=== PATIENT | male | born 1985 | race Caucasian/White ===

== ENCOUNTER 2023-12-18 15:40 | Emergency (ER) | payer OTHER, SELFPAY ==
[2023-12-18 15:41] VITALS: BP 145/108; PULSE 78; RESP 16; TEMP 37; O2SAT 100; BMI 30.8
--- NOTE | 2023-12-18 16:51 | EX.ED.UPPERE ---
HPI History of Present Illness HPI Narrative: 38-year-old male, [id number], injury to his right thumb over a week ago on a Monday when he accidentally shut it in a car door. [facility] Had negative x-rays. He did trephination to remove a subungual hematoma. The subungual hematoma has recurred. He also has a blood blister proximal to the nail. Denies any other injuries. No prior surgery to his right thumb. He is on no blood thinners. Chief Complaint: Upper Extremity Injury Informant: patient Occured/Mechanism Mechanism/Context: Yes injury and Yes blunt trauma Onset/Context/Timing Onset: Days Context: Sudden Onset Timing: Continuous Quality of Pain: Dull and Aching Current Severity: Mild Maximum Severity: Mild Associated Symptoms Associated Symptoms: Negative for Parasthesia, Weakness or Loss of Funtion Narrative Prior similar symptoms: No Recent Illness/Hospitalization: No PFSH PFSH Allergy/AdvReac Type Severity Reaction Status Date / Time No Known Allergies Allergy Verified 12/18/23 15:41 Surgical History (Updated 12/18/23 @ 17:02 by Chiquis Vang) [place] teeth removed Hx of LASIK Status post labral repair of shoulder History of appendectomy Social History Smoking Status: Never smoker ROS ROS ED ROS Narrative Denies recent illness. Review of Systems ROS Unobtainable: Denies due to encephalopathy Constitutional Constitutional ED: Denies chills or fever(s) Eyes Eyes: Denies blurry vision ENT ENT ED: Denies ear pain Cardiovascular Cardiovascular: Denies chest pain Respiratory/Chest Respiratory/Chest: Denies cough Gastrointestinal Gastrointestinal: Denies abdominal pain Genitourinary Genitourinary ED: Denies dysuria or hematuria Musculoskeletal Musculoskeletal: Denies back pain Integumentary Denies abscess Neurologic Neurologic: Denies headache(s) Endocrine Endocrinology: Denies cold intolerance Hematologic/Lymphatic Hematologic/Lymphatic: Denies easy bleeding Allergic/Immunologic Allergic/Immunologic ED: Denies mouth swelling EXAM Physical Exam Narrative Exam Narrative: 38-year-old male no acute distress. Vital signs stable afebrile. HEENT exam unremarkable. Lungs clear. Heart regular rhythm. Abdomen soft. He is moving all 4 extremities. Neurovascular intact. His right thumb is 100% subungual hematoma. It is black and blue. Proximal to the nail he has inch long by half inch wide blood blister. He has normal flexion extension all digits of that hand. Const Vital Signs: 12/18/23 15:41 Temperature 98.6 F Temperature Source Temporal Pulse Rate 78 Respiratory Rate 16 Blood Pressure 145/108 H Blood Pressure Mean 120 Pulse Ox 100 Positive well nourished and well developed; Negative for obese, cachectic or contractures General Appearance ED: well developed and NAD; Negative for cachectic, contractures, cyanotic or diaphoretic Nutritional Appearance: Negative for cachectic or obese HEENT Reports moist mucous membranes normocephalic and atraumatic; Negative for trauma or tenderness Eyes PERRL and EOMs intact bilaterally General Eye ED: Negative for other Neck full ROM and supple General: Negative for tenderness Lymph Lymphatic: Negative for other Chest Wall inspection of chest normal and palpation of chest normal Chest: Negative for other Resp normal respiratory effort and clear to auscultation bilaterally Effort and Inspection: Negative for pain with movement Auscultation: Negative for rales, rhonchi or wheezes Cardio regular rate, regular rhythm, S1 normal heart sound, S2 normal heart sound and no murmurs Rate: Negative for bradycardia or tachycardic Rhythm: Negative for abnormal rhythm GI non-tender, non-distended and no masses Inspection: Negative for abdominal distention Auscultation: normoactive bowel sounds Palpation: soft; Negative for tender, guarding or rebound tenderness present Bladder / Kidney Exam: No other Back/Spine no CVA tenderness General Back: Negative for CVA tenderness Cervical Spine: Negative for cervical spine tenderness Thoracic Spine / Upper Back: Negative for thoracic spinal tenderness Lumbar Spine / Lower Back: Negative for lumbar spinal tenderness Extremity full ROM; Negative for normal to inspection Extremity Narrative: Right thumb 100% subungual hematoma. Proximal nail a blood blister. General Extremety ED: Negative for edema General Extremity: Negative for edema Neuro oriented x3, CN's II-XII intact bilaterally, moves all extremities and no focal motor deficits Sensorium / Orientation: alert, oriented to person, oriented to place and oriented to time; Negative for orientation impaired or lethargic Motor Exam: strength 5/5 throughout Psych mental status grossly normal Attitude: No agitated Mood & Affect: Negative for anxious or tearful Skin General Skin Exam: Negative for petechiae Rashes: no rashes Trauma: no lacerations or abrasions MDM MDM MDM Narrative Medical decision making narrative: Right thumb 100% subungual hematomas of blood blister. Patient I discussed treatments he wanted to be drained. He understands and may not drain much since been there over a week. Will do a digital block of his right thumb all incised and drained a blood blister. And will trephinate the right thumbnail to try to remove the subungual hematoma. History & Record Review Discussion w/independent historian: Patient Procedures Other Procedures Procedure(s): Right thumb 100% subungual hematoma with a blood blister. Cleaned. Shur-Clens. Digital block. Good anesthesia was obtained. I drained the blood blister making about a 1 inch incision. Was able to remove a fair amount of blood. There was no pus or signs of infection. There was washed out with saline. I then trephonated made 2 holes in the nail bed was able to remove a small amount of blood. It had been there week most of blood was clotted. Patient was told how to do wound care. And he might lose his nail. Discharge Plan Triage Chief Complaint: Upper Extremity Injury ED Provider: Rashad Scott Dx/Rx/DC Orders Clinical Impression: Subungual hematoma, Blood blister Instructions: ED Subungual Hematoma Primary Care Provider: Luis Alves Referrals: Luis Alves MD [Primary Care Provider] - Activity Restrictions/Additional Instructions: Clean the wound on your thumb that I drained the blood blister daily with soap and water or peroxide and water. Soak the thumb and nail in peroxide and water 20 to 30 minutes a day to help it drain. Keep it clean and covered. Any signs of infection such as pus, redness, swelling or streaks return. You may or may not lose your thumb nail. Print Language: [place] Disposition Disposition: Home, Self Care
[2023-12-18] MEDS: Lidocaine 1% (20 ml mdv) 20 ML Vial 10 ML INFILT (16:58)
[2023-12-18 17:41] VITALS: PULSE 70; RESP 16; O2SAT 98
[2023-12-18 17:55] VITALS: PULSE 70; RESP 16; TEMP 36.5; O2SAT 98
== END 2023-12-18 17:56 | disposition home or self-care (01) ==
PROVIDERS: Emergency Provider Emergency Medicine; PCP Internal Medicine; Visit Provider Emergency Medicine
DX: S60.111A Contusion of right thumb with damage to nail, initial encounter (principal); S60.321A Blister (nonthermal) of right thumb, initial encounter; W23.0XXA Caught, crushed, jammed, or pinched between moving objects, initial encounter
CPT/HCPCS: 11740; 10140; 99285

== ENCOUNTER → 2024-08-09 | Outpatient (CLI) | payer OTHER, SELFPAY ==
--- NOTE | 2024-08-09 07:25 | MRI_ITS ---
PROCEDURE: MRI lumbar spine without IV contrast REASON FOR EXAM: Pain, lifting injury TECHNIQUE: Multisequence multiplanar MR images of the lumbar spine were obtained without the administration of intravenous contrast. COMPARISON: None. FINDINGS: Vertebral body heights are within normal limits. Negative for fracture or suspicious marrow replacement. Alignment is intact. Conus medullaris is within normal limits and terminates at T12-L1. No paraspinal mass. 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 L1-2: No focal disc abnormality, spinal stenosis or foraminal narrowing. L2-3: No focal disc abnormality, spinal stenosis or foraminal narrowing. L3-4: No focal disc abnormality. Mild congenital spinal stenosis. No significant foraminal narrowing. L4-5: No focal disc abnormality. Mild congenital spinal stenosis. Mild left foraminal narrowing. Mild bilateral facet arthrosis. L5-S1: Broad-based central disc protrusion and annular fissure. Mild bilateral facet arthrosis. No significant spinal stenosis. Mild/moderate bilateral foraminal narrowing. MRI/Spine Lumbar (Routine) IMPRESSION: 1. 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 2. Broad-based central disc protrusion and annular fissure at L5-S1 without sig nificant spinal stenosis. 3. Acquired mild/moderate bilateral foraminal narrowing at L5-S1. Reading Location: [facility]
== END | disposition home or self-care (01) ==
PROVIDERS: PCP Internal Medicine; Referring Provider Chiropractor; Visit Provider Chiropractor
DX: M51.362 Other intervertebral disc degeneration, lumbar region with discogenic back pain and lower extremity pain (principal)
CPT/HCPCS: 72148